=== PATIENT | male | born 1960 | race African-American/Black ===

== ENCOUNTER 2021-12-21 05:23 | Observation (INO) | payer OTHER ==
[2021-12-21 07:06] LABS: #Eosinphils 0.1 thou/uL (0.0-0.7); #Lymphocytes 1.6 thou/uL (1.20-3.40); #Monocytes 0.5 thou/uL (0.11-0.59); #Neutrophils 4.5 thou/uL (1.40-6.50); %Basophils 0.5 % (0.0-1.0); %Eosinophils 1.4 % (0.0-10.0); %Lymphocytes 24.3 % (21.0-51.0); %Monocytes 6.9 % (0.0-10.0); %Neutrophils 66.9 % (42.0-75.0); Hemoglobin 9.9 g/dL (14.0-18.0); Mean Corpuscular HGB CONC 29.8 g/dL (32.0-36.0); Mean Corpuscular Hemoglobin 23.1 pg (27.0-31.0); Mean Corpuscular Volume 77.5 fL (78.0-98.0); Mean Platelet Volume 7.5 fL (7.4-10.4); Platelet Count 207 thou/uL (130-400); RBC Distribution Width 15.9 % (11.5-14.5); Red Blood Cell (RBC) Count 4.27 mill/uL (4.70-6.10); White Blood Cell (WBC) Count 6.8 thou/uL (4.8-10.8)
[2021-12-21 07:14] LABS: INR-International Normal Ratio 1.1; PTT 31.5 sec (22.9-36.1); Prothrombin Time 13.9 sec (12.0-14.7)
[2021-12-21 07:22] LABS: ALT (SGPT) 10 U/L (8-55); AST (SGOT) 16 U/L (5-34); Alkaline Phosphatase 73 U/L (40-110); Anion Gap 12 mmol/L (10-20); BUN (Urea Nitrogen) 20 mg/dL (8.4-25.7); Calc. Creatinine Clearance 0 mL/min (70-130); Calcium 9.2 mg/dL (7.8-10.44); Carbon Dioxide 24 mmol/L (23-31); Chloride 108 mmol/L (98-107); Globulin 3.2 g/dL (2.4-3.5); Glucose 88 mg/dL (80-115); Magnesium 1.7 mg/dL (1.6-2.6); Phosphorus 2.8 mg/dL (2.3-4.7); Potassium 3.3 mmol/L (3.5-5.1); Protein, Total 7.2 g/dL (5.8-8.1); Sodium 141 mmol/L (136-145)
[2021-12-21 07:24] LABS: Hypochromia SLIGHT = 6-15 cells (100X) (0-5/hpf); MDiff Complete? YES; Microcytosis SLIGHT = 6-15 cells (100X) (0-5/hpf); Ovalocytes SLIGHT = 2-5 cells (100X) (0-1/hpf); Platelet Morphology Comment Appears Adequate; Schistocytes SLIGHT = 2-5 cells (100X) (0-1/hpf); Tear Drops SLIGHT = 2-5 cells (100X) (0-1/hpf)
[2021-12-21] MEDS ORDERED: Ondansetron ODT 4 MG TAB PO PRN (09:30)
[2021-12-21] MEDS ORDERED: Dextrose 50% Abboject 50 ML SYRINGE SLOW IVP PRN (09:30)
[2021-12-21] MEDS ORDERED: Dextrose 5% in Water 1,000 ML IV PRN (09:30)
[2021-12-21] MEDS ORDERED: traMADol HCl 50 MG TAB PO PRN (09:33)
[2021-12-21] MEDS ORDERED: Cyclobenzaprine 10 MG TAB PO PRN (09:33)
[2021-12-21 10:47] VITALS: BMI 22.7
[2021-12-21 10:49] LABS: SARS-CoV-2 NAA Rapid Test Not Detected (NotDetected)
[2021-12-21] MEDS: Acetaminophen 500 MG TAB PO SCH ×2 (11:16→17:38)
[2021-12-21] MEDS: CEFAZOLIN 2 GM in Sodium Chloride 0.9% 100 ML IVPB SCH ×2 (11:18→17:38)
[2021-12-21] MEDS: traMADol HCl 50 MG TAB PO SCH ×3 (11:18→22:30)
[2021-12-21] MEDS ORDERED: Ibuprofen 600 MG TAB PO PRN (11:35)
[2021-12-21] MEDS ORDERED: Amlodipine 10 MG TAB PO SCH (11:45)
[2021-12-21] MEDS ORDERED: hydrALAZINE 25 MG TAB PO SCH (11:45)
[2021-12-21] MEDS ORDERED: Lisinopril 20 MG TAB PO SCH (11:45)
[2021-12-21] MEDS: Potassium Chloride 20 MEQ in Premix Bag 1 BAG IVPB SCH ×2 (12:54→15:54)
[2021-12-21] MEDS: hydrALAZINE 25 MG TAB PO SCH (20:13)
[2021-12-21] MEDS: Ciprofloxacin HCL/Dexameth Otic Drops 7.5 ml Bottle L EAR SCH (20:16)
[2021-12-22] MEDS: Acetaminophen 500 MG TAB PO SCH ×3 (00:21→12:35)
[2021-12-22] MEDS: CEFAZOLIN 2 GM in Sodium Chloride 0.9% 100 ML IVPB SCH ×2 (01:48→09:55)
[2021-12-22] MEDS: traMADol HCl 50 MG TAB PO SCH ×2 (05:22→10:18)
[2021-12-22] MEDS ORDERED: Haloperidol 1 MG TAB PO SCH (09:00)
[2021-12-22] MEDS ORDERED: Allopurinol 300 MG TAB PO SCH (09:00)
[2021-12-22] MEDS ORDERED: Amlodipine 10 MG TAB PO SCH (09:00)
[2021-12-22] MEDS ORDERED: Lisinopril 20 MG TAB PO SCH (09:00)
[2021-12-22] MEDS: hydrALAZINE 25 MG TAB PO SCH (09:55)
[2021-12-22] MEDS: Ciprofloxacin HCL/Dexameth Otic Drops 7.5 ml Bottle L EAR SCH (09:56)
[2021-12-22 17:37] VITALS: BP 148/64; TEMP 97.4
== END 2021-12-22 16:10 ==
LOC: ERS 05:23 → SURG A 06:43
PROVIDERS: ADMIT Surgery; ATTEND Surgery
DX: S52.291B Other fracture of shaft of right ulna, initial encounter for open fracture type I or II (principal); G89.11 Acute pain due to trauma; I11.9 Hypertensive heart disease without heart failure; M10.9 Gout, unspecified; M19.90 Unspecified osteoarthritis, unspecified site; H66.93 Otitis media, unspecified, bilateral; N40.0 Benign prostatic hyperplasia without lower urinary tract symptoms; Z79.2 Long term (current) use of antibiotics; Z79.899 Other long term (current) drug therapy; Z20.822 Contact with and (suspected) exposure to COVID-19; Y00.XXXA Assault by blunt object, initial encounter; Y92.149 Unspecified place in prison as the place of occurrence of the external cause
CPT/HCPCS: 29105; 36415; 71045; 80053; 83735; 84100; 85025; 85610; 85730; 86850; 86900; 86901; 93005; 96365; 96366; 96367; 96376; G0378; J3480; J3490; U0002